=== PATIENT | male | born 1990 | race Caucasian/White ===

== ENCOUNTER 2024-04-18 11:15 | Emergency (ER) | payer SELFPAY ==
[~2024-04-18] VITALS: Ht 188 cm; Wt 83.9 kg
[2024-04-18] MEDS ORDERED: CLIN1CAP70 PO (13:28)
[2024-04-18] MEDS ORDERED: IBUP1TAB5 PO (13:28)
[2024-04-18 14:12] VITALS: BP 126/81; PULSE 68; RESP 16; TEMP 98.8; O2SAT 100
== END 2024-04-18 14:19 | disposition home or self-care (01) ==
LOC: ER 11:21
DX: K02.9 Dental caries, unspecified (principal); K08.89 Other specified disorders of teeth and supporting structures; F17.210 Nicotine dependence, cigarettes, uncomplicated; F15.90 Other stimulant use, unspecified, uncomplicated